=== PATIENT | female | born 1965 | race Caucasian/White ===

== ENCOUNTER 2018-10-06 07:54 | Day surgery (SDC) | payer BC ==
[~2018-10-06] VITALS: Ht 160 cm; Wt 59.0 kg
[2018-10-06] VITALS (10 sets, daily range): BP systolic 92–127; BP diastolic 57–78
[2018-10-06] MEDS ORDERED: NKM (08:58)
[2018-10-06] MEDS ORDERED: Bupivacaine w/Epi 0.5% 30ml Vial INJ ONE (09:21)
[2018-10-06] MEDS ORDERED: Lidocaine 1% 10mg/ml/Epi 0.005mg/ml 30ml vial INJ ONE (09:21)
[2018-10-06] MEDS ORDERED: Bacitracin 50000 Units Vial ONE (09:21)
[2018-10-06] MEDS ORDERED: NS Irrig 1000ml IRRIG ONE ×3 (09:32→10:30)
[2018-10-06] MEDS ORDERED: fentaNYL 100 mcg/2 mL IV ONE (09:38)
[2018-10-06] MEDS ORDERED: Propofol 200mg/20ml IV ONE (09:38)
[2018-10-06] MEDS ORDERED: Midazolam 2mg/2ml Inj ONE (09:39)
[2018-10-06] MEDS ORDERED: Lidocaine 1% MPF 10mg/ml 5ml ONE (09:39)
[2018-10-06] MEDS ORDERED: Sterile Water Irrig 1000ml IRRIG ONE (10:00)
[2018-10-06] MEDS ORDERED: NS Irrig 1000ml ONE (10:00)
[2018-10-06] MEDS ORDERED: LR 1000ml ONE (10:00)
--- NOTE | 2018-10-06 10:07 | Pre-Procedure Note/Attestation ---
Pre-Procedure Note/Attestation Complete Prior to Procedure Planned Procedure: left Procedure Narrative: excision of left breast mass Attestation I attest that I discussed the nature of the procedure; its benefits; risks and complications; and alternatives (and the risks and benefits of such alternatives ), prior to the procedure, with the patient (or the patient's legal door to door sales representative). I attest that, if there was a reasonable possibility of needing a blood transfusion, the patient (or the patient's legal door to door sales representative) was given the [facility] standardized written summary, pursuant to the Kulwant Tenisha Blood Safety Act ([place] Health and Safety Code # 1645, as amended). I attest that I re-evaluated the patient just prior to the surgery and that there has been no change in the patient's H&P, except as documented below: Antoni Stratton MD Oct 06, 2018 10:07
[2018-10-06] MEDS ORDERED: ceFAZolin sod 1 GM in NS 55 ML IVPB ONE (10:15)
--- NOTE | 2018-10-06 10:52 | Anethesia Preoperative Eval ---
Anesthesia Pre-op PMH/ROS General Date of Evaluation: Oct 06, 2018 Time of Evaluation: 10:00 Anesthesiologist: Tiffany Rojas CRNA ASA Score: ASA 1 Mallampati Score Class I : Soft palate, uvula, fauces, pillars visible Class II: Soft palate, uvula, fauces visible Class III: Soft palate, base of uvula visible Class IV: Only hard plate visible Mallampati Classification: Class I Surgeon: Chayito Diagnosis: LEFT breast mass Surgical Procedure: excision of LEFT breast mass Anesthesia History: none Family History: no anesthesia problems Allergies: Coded Allergies: No Known Allergies (Unverified , 10/06/18) Medications: see eMAR Patient NPO?: Yes NPO Date: Oct 06, 2018 NPO Time: 06:30 Past Medical History Cardiovascular: Denies: HTN, CAD, LA, valve dz, arrhythmia, other Pulmonary: Denies: asthma, COPD, IRA, other Gastrointestinal/Genitourinary: Denies: GERD, CRI, ESRD, other Neurologic/Psychiatric: Denies: dementia, CVA, depression/anxiety, TIA, other Endocrine: Denies: DM, hypothyroidism, steroids, other HEENT: Denies: cataract (L), cataract (R), glaucoma, ANGOON (L), ANGOON (R), other Hematology/Immune: Denies: anemia, DVT, bleeding disorder, other Musculoskeletal/Integumentary: Reports: other - LEFT breast mass s/p removal of breast implant; Denies: OA, RA, DJD, DDD, edema PMH Narrative: as noted above PSxH Narrative: breast implant insertion, breast implant removal Anesthesia Pre-op Phys. Exam Physician Exam Last Vital Signs Date Time Temp Pulse Resp B/P (MAP) Pulse Ox O2 Delivery O2 Flow Rate FiO2 10/06/18 08:44 Room Air 10/06/18 08:36 96.7 62 18 92/57 95 Constitutional: NAD Neurologic: other - alert & orientedd Cardiovascular: RRR Respiratory: CTA Gastrointestinal: S/NT/ND Airway Exam Mallampati Score: Class I Neck: FROM TMD: > 3 FB ROM: full Teeth: intact Dentures: no upper, no lower Anesthesia Pre-op A/P Risk Assessment & Plan Assessment: ASA 1, ok to proceed Plan: MAC Status Change Before Surgery: No Pre-Antibiotics Drug: Tiffany Green CRNA Oct 06, 2018 10:52
[2018-10-06] MEDS ORDERED: Metoclopramide 10mg/2ml Inj IVP PRN (11:15)
[2018-10-06] MEDS ORDERED: Hydromorphone 0.5mg/0.5ml inj IVP PRN (11:15)
--- NOTE | 2018-10-06 11:23 | Immediate Post-Op Evaluation ---
Immediate Post-Op Evalulation Immediate Post-Op Evalulation Procedure: Excision of LEFT breast mass Date of Evaluation: Oct 06, 2018 Time of Evaluation: 11:21 IV Fluids: LR 400 ml Estimated Blood Loss: 20 ml Blood Pressure Systolic: 127 Blood Pressure Diastolic: 71 Pulse Rate: 70 Respiratory Rate: 20 O2 Sat by Pulse Oximetry: 100 Temperature (Fahrenheit): 97.1 Pain Score (1-10): 5 Nausea: No Vomiting: No Complications none Patient Status: awake, reacts, patent Hydration Status: adequate Drug: Cefazolin 1000 mg IV Given Within 1 Hr of Incision: Yes Time Given: 10:20 Tiffany Rojas CRNA Oct 06, 2018 11:23
--- NOTE | 2018-10-06 11:33 | Brief Operative Note ---
Immediate Post Operative Note Operative Note Pre-op Diagnosis: mass of left superior breast Procedure: excision of left breast mass Post-op Diagnosis: same Post-op Diagnosis: same as pre-op Surgeon: syed Anesthesia: moderate sedation Specimen: yes Complications: none Condition: stable Fluids: none Estimated Blood Loss: minimal Drains: none Implant(s) used?: No Antoni Stratton MD Oct 06, 2018 11:33
--- NOTE | 2018-10-06 13:41 | 48 Hour Post Anesthesia Eval ---
Post Anesthesia Evaluation Procedure: Excision of LEFT breast mass Date of Evaluation: Oct 06, 2018 Time of Evaluation: 13:40 Blood Pressure Systolic: 101 0: 62 Pulse Rate: 58 Respiratory Rate: 20 Temperature (Fahrenheit): 97.4 O2 Sat by Pulse Oximetry: 96 Airway: patent Nausea: No Vomiting: No Pain Intensity: 2 Hydration Status: adequate Cardiopulmonary Status: stable Mental Status/LOC: patient returned to baseline Follow-up Care/Observations: per plastic surgery Post-Anesthesia Complications: none Follow-up care needed: N/A Tiffany Rojas CRNA Oct 06, 2018 13:41
--- NOTE | 2018-10-06 18:00 | Operative Note - Dictated ---
DATE OF OPERATION: 10/06/2018 PREOPERATIVE DIAGNOSIS: Mass of left superior breast. POSTOPERATIVE DIAGNOSIS: Mass of left superior breast. OPERATION PERFORMED: Excision of left breast mass. SURGEON: Antoni Stratton M.D. ANESTHESIOLOGIST: Tiffany Rojas DEVELOPER PROGRAMMER INDICATIONS F0R SURGERY: The patient had a history of bilateral breast augmentation for many years and had calcification. The capsule was removed and the breast implants were removed. Now, patient comes back approximately a year or two later and notices that there was a mass in the left upper quadrant of the left breast. The mass is firm, contracted, and smooth, but gritty, so not that smooth. The patient complained of some discomfort. The patient wanted to have the mass removed. The mass was about the size of an egg. DESCRIPTION OF PROCEDURE: The patient was prepped and draped in the usual manner for the surgery, was given D5 and half-normal saline. The left upper extremity was injected with 0.5% Marcaine, 1:200,000 epinephrine. The injection was in the area of the periareolar area. The incision was made and following the incision, the dissection was then further made with the cutting cautery and the Metzenbaum scissors. We went around the mass, which was calcified, gritty, and firm and took it out in basically 2 or 3 pieces. There was no remaining mass. The patient then was irrigated with saline and any bleeders were cauterized. There was very minimal bleeding. The patient was then sutured at the level of the breast tissue and dermis using 3-0 Vicryl sutures, multiple in the breast tissue and then the dermis, and then a 4-0 continuous running blue Prolene in the skin. The patient was then transferred to the postop recovery facility. We had put bacitracin and then 4x4s over the incision. There was an estimated less than 10 mL blood loss. The patient tolerated the procedure well. Antoni Stratton M.D. DR: Mariluz JOB#: [id number] CC: [email or web address]
== END 2018-10-06 12:30 | disposition home or self-care (01) ==
LOC: SUR 07:54
DX: N60.32 Fibrosclerosis of left breast (principal)
CPT/HCPCS: 19120; J1170; J2250; J2405; J2704; J3010; 94003; 94150